=== PATIENT | female | born 1995 | race Caucasian/White ===

== ENCOUNTER 2020-08-15 02:20 | Emergency (ER) | payer OTHER ==
[~2020-08-15] VITALS: Ht 157.5 cm; Wt 79.5 kg
[2020-08-15] MEDS ORDERED: FLUORESCEIN SODIUM 1 MG STRIP ONE ×2 (02:38→02:39)
[2020-08-15] MEDS ORDERED: FLUORESCEIN SODIUM 1 MG STRIP OS ONE (02:45)
[2020-08-15] MEDS ORDERED: PROPARACAINE HCL 0.5% 15 ML OPHTHALMIC SOLUTION OS ONE (02:45)
[2020-08-15 03:04] VITALS: BP 159/56
[2020-08-15] MEDS ORDERED: FentaNYL CITRATE PF 100 MCG/2 ML VIAL IVP ONE (03:15)
== END 2020-08-15 03:09 | disposition short-term general hospital (02) ==
LOC: EMS 02:24
DX: S05.32XA Ocular laceration without prolapse or loss of intraocular tissue, left eye, initial encounter (principal); F17.210 Nicotine dependence, cigarettes, uncomplicated; Y04.0XXA Assault by unarmed brawl or fight, initial encounter; Y93.89 Activity, other specified; Y92.89 Other specified places as the place of occurrence of the external cause; Y99.8 Other external cause status
CPT/HCPCS: 96374; 99285; J3010

== ENCOUNTER 2021-01-25 21:46 | Emergency (ER) | payer OTHER ==
[~2021-01-25] VITALS: Ht 157.5 cm; Wt 72.7 kg
[2021-01-25] MEDS ORDERED: KETOROLAC TROMETHAMINE 30 MG/ML VIAL IVP ONE (23:00)
[2021-01-25] MEDS ORDERED: PROPARACAINE HCL 0.5% 15 ML OPHTHALMIC SOLUTION OS ONE (23:00)
[2021-01-25] MEDS ORDERED: FLUORESCEIN SODIUM 1 MG STRIP OD ONE (23:00)
[2021-01-25 23:27] LABS: BASOPHILS % (AUTO) 0.5 % (0.0-2.0); EOSINOPHILS % (AUTO) 0.9 % (1.0-6.0); HEMATOCRIT 36.8 % (36-46); LYMPHOCYTES # (AUTO) 1.6 K/uL (1.0-4.8); LYMPHOCYTES % (AUTO) 20.2 % (22.0-44.0); MEAN CORPUSCULAR HEMOGLOBIN 30.3 pg (26.0-34.0); MEAN CORPUSCULAR HGB CONC 32.6 G/dL (31.0-37.0); MEAN CORPUSCULAR VOLUME 93 fL (80-100); MONOCYTES # (AUTO) 0.5 K/uL (0.1-1.0); NEUTROPHILS # (AUTO) 5.6 K/uL (1.8-7.7); NEUTROPHILS % (AUTO) 72.4 % (40.0-70.0); PLATELET COUNT (AUTO) 266 K/uL (150-450); RED BLOOD CELL COUNT(AUTO) 3.96 MIL/uL (4.00-5.20); RED CELL DISTRIBUTION WIDTH 13.6 % (11.5-14.5)
[2021-01-25 23:45] LABS: ANION GAP 7 mmol/L (8-16); CARBON DIOXIDE 27 mmol/L (22-29); CHLORIDE 106 mmol/L (98-107); CREATININE 0.96 mg/dL (0.60-1.30); GLOMERULAR FILTR. RATE CALC > 60 mL/min (>60); GLUCOSE,RANDOM 115 mg/dL (70-110); SODIUM SERUM 140 mmol/L (136-145); UREA NITROGEN, BLOOD 18 mg/dL (7-18)
[2021-01-26 00:05] LABS: ALANINE AMINOTRANSFERASE 32 U/L (12-78); ALBUMIN 3.3 g/dL (3.4-5.0); ALKALINE PHOSPHATASE 80 U/L (46-116); ASPARTATE AMINOTRANSFERASE 21 U/L (15-37); HCG,QUANTITATIVE < 1 mIU/mL (0-6); TOTAL PROTEIN, SERUM 7.1 g/dL (6.4-8.2)
[2021-01-26 00:22] LABS: BILIRUBIN,TOTAL 0.1 mg/dL (0.1-1.0)
[2021-01-26] MEDS ORDERED: SODIUM CHLORIDE 0.9% 100 ML ONE (00:45)
[2021-01-26] MEDS ORDERED: IOHEXOL 350 MG/ML 100 ML VIAL ONE (00:45)
[2021-01-26] MEDS ORDERED: LIDOCAINE/PF 1% 2 ML VIAL IM ONE (03:30)
[2021-01-26] MEDS ORDERED: AZITHROMYCIN 500 MG TABLET PO ONE (03:30)
[2021-01-26] MEDS ORDERED: CLINDAMYCIN PHOS 150 MG/ML 4 ML VIAL IM ONE (03:30)
[2021-01-26] MEDS ORDERED: CefTRIAXone SODIUM 1 GM/VIAL IM ONE (03:30)
[2021-01-26 03:50] VITALS: BP 140/89
== END 2021-01-26 04:10 | disposition home or self-care (01) ==
LOC: EMS 21:46
DX: L02.414 Cutaneous abscess of left upper limb (principal); L03.213 Periorbital cellulitis; N76.0 Acute vaginitis; K08.89 Other specified disorders of teeth and supporting structures; F17.210 Nicotine dependence, cigarettes, uncomplicated; F19.90 Other psychoactive substance use, unspecified, uncomplicated
CPT/HCPCS: 36415; 70460; 80053; 84702; 85025; 87210; 96372; 96374; 99285; A9575; G0480; J0696; J1885; J3490 ×2; J7050

== ENCOUNTER 2022-05-29 17:22 | Emergency (ER) | payer MEDICAID, OTHER | END 2022-05-29 17:40 | disposition left against medical advice (07) | LOC: EMS 17:40 | DX: Z53.21 Procedure and treatment not carried out due to patient leaving prior to being seen by health care provider (principal) ==